=== PATIENT | male | born 1990 | race Caucasian/White ===

== ENCOUNTER 2017-01-10 18:40 | Emergency (ER) | payer SELFPAY ==
[~2017-01-10 18:40] MED LIST: DOXY100T PO; PROM25SU8 PO; Z.0.NO CURRENT MEDS
[2017-01-10 18:41] VITALS: BP 157/77; PULSE 67; RESP 15; TEMP 97.8; O2SAT 97
== END 2017-01-10 20:54 | disposition left against medical advice (07) ==
LOC: NED 18:40
DX: R07.0 Pain in throat (principal); Z53.21 Procedure and treatment not carried out due to patient leaving prior to being seen by health care provider
CPT/HCPCS: 99281